=== PATIENT | female | born 1980 | race African-American/Black ===

== ENCOUNTER 2019-11-14 12:07 | Emergency (ER) | payer BC ==
[~2019-11-14] VITALS: Ht 167.6 cm; Wt 97.1 kg
[2019-11-14] MEDS ORDERED: CLEOCIN HCL300 MG PO (13:58)
[2019-11-14] MEDS ORDERED: KETO10TA2 PO (13:58)
== END 2019-11-14 14:02 | disposition home or self-care (01) ==
LOC: ER 12:07
DX: K08.89 Other specified disorders of teeth and supporting structures (principal)